=== PATIENT | female | born 1985 | race Caucasian/White ===

== ENCOUNTER 2016-12-16 00:49 | Outpatient (CLI) | payer OTHER ==
[~2016-12-16] VITALS: Ht 160 cm; Wt 99.8 kg
[2016-12-16 01:25] VITALS: BP 99/54
[2016-12-16] MEDS ORDERED: LEXAPRO5 MG PO (01:42)
[2016-12-16 02:29] LABS: ADD MIUA? YES; BILIRUBIN NEGATIVE; BLOOD SMALL; COLOR YELLOW ((YELLOW)); GLUCOSE (STRIP) NEGATIVE; KETONES NEGATIVE; LEUKOCYTES LARGE; NITRITE NEGATIVE; PROTEIN (STRIP) NEGATIVE; SPECIFIC GRAVITY 1.003 (1.000-1.030); UROBILINOGEN 0.2 MG/DL (0.2-1.0)
[2016-12-16 03:01] LABS: EPITHELIAL CELLS 3+ /HPF; MUCUS 1+ /LPF; WHITE BLOOD CELLS TNTC /HPF (0-5)
[2016-12-16 03:02] LABS: BACTERIA 3+ /HPF; CASTS PRESENT /LPF; CRYSTALS NONE SEEN
[2016-12-16 03:03] LABS: HYALINE CASTS 0-5 /LPF
[2016-12-16 04:41] LABS: CANDIDA DNA PROBE POSITIVE; GARDNERELLA DNA PROBE POSITIVE; INTERNAL CONTROL VALID? YES
[2016-12-16 12:21] LABS: CHLAMYDIA TRACHOMATIS NEGATIVE; NEISSERIA GONORRHOEAE NEGATIVE
== END 2016-12-16 04:06 | disposition home or self-care (01) ==
LOC: LDRP-OP 00:49 → 2WEST 00:50
PROVIDERS: Nurse Practitioner; Obstetrics & Gynecology
DX: O98.812 Other maternal infectious and parasitic diseases complicating pregnancy, second trimester (principal); B37.49 Other urogenital candidiasis; Z3A.27 27 weeks gestation of pregnancy; Z87.891 Personal history of nicotine dependence
CPT/HCPCS: 59025; 81003; 87086; 87480; 87491; 87510; 87591; 87660; G0378

== ENCOUNTER 2017-02-10 12:31 | Outpatient (CLI) | payer OTHER ==
[~2017-02-10 12:31] MED LIST: LEXAPRO5 MG PO
[2017-02-10 12:57] VITALS: BP 125/71
== END 2017-02-10 13:45 | disposition home or self-care (01) ==
LOC: LDRP-OP 12:31 → 2WEST 12:32 → LDRP-OP 04-11 04:22
DX: O10.913 Unspecified pre-existing hypertension complicating pregnancy, third trimester (principal); Z3A.35 35 weeks gestation of pregnancy; O99.343 Other mental disorders complicating pregnancy, third trimester; O09.293 Supervision of pregnancy with other poor reproductive or obstetric history, third trimester; O99.213 Obesity complicating pregnancy, third trimester; E66.9 Obesity, unspecified; Z68.39 Body mass index [BMI] 39.0-39.9, adult
CPT/HCPCS: 59025; G0378

== ENCOUNTER 2017-02-14 10:59 | Outpatient (CLI) | payer OTHER ==
[2017-02-14 11:13] VITALS: BP 114/61
== END 2017-02-14 13:40 | disposition home or self-care (01) ==
LOC: LDRP-OP 10:59 → 2WEST 11:00 → LDRP-OP 04-11 14:42
DX: O36.5930 Maternal care for other known or suspected poor fetal growth, third trimester, not applicable or unspecified (principal); Z3A.36 36 weeks gestation of pregnancy
CPT/HCPCS: 59025; G0378

== ENCOUNTER 2017-02-19 17:02 | Inpatient (IN) | payer OTHER ==
[2017-02-19] VITALS (7 sets, daily range): BP systolic 105–120; BP diastolic 54–66
[~2017-02-19] VITALS: Ht 160 cm; Wt 104.0 kg
[2017-02-19 17:51] LABS: EOSINOPHIL (%) 0.5 % (0-5); EOSINOPHIL COUNT 0.1 K/uL (0-0.3); HEMATOCRIT 32.1 % (36.0-46.0); IMMATURE GRANULOCYTE (%) 1.2 % (0.0-0.7); IMMATURE GRANULOCYTE COUNT 0.2 K/uL; INSTRUMENT ABS NEUTROPHIL CT 7.7 K/uL; LYMPHOCYTE COUNT 3.9 K/uL (1.0-2.8); MCH 29.6 PG (29.0-34.0); MCHC 33.3 G/DL (30.0-36.0); MCV 88.9 FL (83-99); MEAN PLAT.VOLUME 10.2 uM^3 (9.5-12.4); MONOCYTE (%) 9.7 % (3-12); MONOCYTE COUNT 1.3 K/uL (0-0.8); NEUTROPHIL (%) 58.7 % (45-76); NEUTROPHIL COUNT 7.7 K/uL (1.8-6.4); PLATELET COUNT 227 K/uL (156-360); RBC DIS.WIDTH-CV 13.8 % (11.8-14.6); RBC DIS.WIDTH-SD 44.7 % (39-53); RED BLOOD COUNT 3.61 M/uL (3.80-5.20); WHITE BLOOD COUNT 13.1 K/uL (4.1-10.2)
[2017-02-20] VITALS (33 sets, daily range): BP systolic 91–124; BP diastolic 51–72
[2017-02-21] VITALS (59 sets, daily range): BP systolic 87–143; BP diastolic 45–75
[2017-02-21] MEDS ORDERED: MOTRIN800 MG PO (07:56)
[2017-02-21] MEDS ORDERED: PERCOCET 5/31 TABLET PO (07:56)
[2017-02-22 07:29] LABS: EOSINOPHIL (%) 0.3 % (0-5); EOSINOPHIL COUNT 0.1 K/uL (0-0.3); HEMATOCRIT 22.5 % (36.0-46.0); IMMATURE GRANULOCYTE COUNT 0.2 K/uL; INSTRUMENT ABS NEUTROPHIL CT 11.2 K/uL; MCH 31.3 PG (29.0-34.0); MCHC 34.2 G/DL (30.0-36.0); MCV 91.5 FL (83-99); MEAN PLAT.VOLUME 10.9 uM^3 (9.5-12.4); MONOCYTE (%) 13.4 % (3-12); MONOCYTE COUNT 2.2 K/uL (0-0.8); NEUTROPHIL COUNT 11.2 K/uL (1.8-6.4); PLATELET COUNT 165 K/uL (156-360); RBC DIS.WIDTH-CV 14.1 % (11.8-14.6); RBC DIS.WIDTH-SD 46.8 % (39-53); WHITE BLOOD COUNT 16.7 K/uL (4.1-10.2)
[2017-02-22 07:34] LABS: RED BLOOD COUNT 2.46 M/uL (3.80-5.20)
[2017-02-22 08:10] VITALS: BP 109/52
[2017-02-22 10:43] VITALS: BP 88/53
[2017-02-22 15:37] VITALS: BP 101/58
[2017-02-23 07:38] VITALS: BP 112/53
== END 2017-02-23 15:15 | disposition home or self-care (01) | DRG 765 ==
LOC: LDRP-OP 17:02 → 2WEST 17:03 → LDRP-OP 04-11 14:07
PROVIDERS: Nurse Practitioner; Obstetrics & Gynecology
PROC: 3E0P7GC Introduction of Other Therapeutic Substance into Female Reproductive, Via Natural or Artificial Opening (ICD-10-PCS; 2017-02-19)
PROC: 3E033VJ Introduction of Other Hormone into Peripheral Vein, Percutaneous Approach (ICD-10-PCS; 2017-02-20)
PROC: 0U7C7ZZ Dilation of Cervix, Via Natural or Artificial Opening (ICD-10-PCS; 2017-02-20)
PROC: 00HU33Z Insertion of Infusion Device into Spinal Canal, Percutaneous Approach (ICD-10-PCS; 2017-02-20)
PROC: 3E0R3CZ (ICD-10-PCS; 2017-02-20)
PROC: 10D00Z0 Extraction of Products of Conception, High, Open Approach (ICD-10-PCS; principal; 2017-02-21)
DX: O32.1XX0 Maternal care for breech presentation, not applicable or unspecified (principal); O32.6XX0 Maternal care for compound presentation, not applicable or unspecified; O32.0XX0 Maternal care for unstable lie, not applicable or unspecified; O36.5930 Maternal care for other known or suspected poor fetal growth, third trimester, not applicable or unspecified; O99.02 Anemia complicating childbirth; D62 Acute posthemorrhagic anemia; O99.824 Streptococcus B carrier state complicating childbirth; O99.343 Other mental disorders complicating pregnancy, third trimester; F32.9 Major depressive disorder, single episode, unspecified; Z3A.37 37 weeks gestation of pregnancy; Z37.0 Single live birth
CPT/HCPCS: 85025; C1755; G0378; J0690; J1885; J2274; J2405; J2540; J2795; J3010; J7120